=== PATIENT | male | born 1975 | race American Indian/Alaskan Native ===

== ENCOUNTER 2016-07-04 07:45 | Emergency (ER) | payer OTHER ==
[2016-07-04 08:01] VITALS: BP 166/110
[2016-07-04] MEDS: MOTRIN PO ONE (09:08)
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
--- NOTE | 2016-07-04 12:11 | XRay Report ---
LEFT SHOULDER: Routine views demonstrate normal bony and soft tissue structures with normal joint alignment of the shoulder. IMPRESSION: Normal study..
== END 2016-07-04 10:00 | disposition home or self-care (01) ==
LOC: ED 07:45
DX: S16.1XXA Strain of muscle, fascia and tendon at neck level, initial encounter (principal); S46.912A Strain of unspecified muscle, fascia and tendon at shoulder and upper arm level, left arm, initial encounter; I10 Essential (primary) hypertension; F17.200 Nicotine dependence, unspecified, uncomplicated; V89.2XXA Person injured in unspecified motor-vehicle accident, traffic, initial encounter; Y93.89 Activity, other specified; Y99.8 Other external cause status; Y92.89 Other specified places as the place of occurrence of the external cause
CPT/HCPCS: 99283

== ENCOUNTER 2016-11-12 22:10 | Emergency (ER) | payer SELFPAY ==
[2016-11-13] MEDS ORDERED: BENADRYL IM ONE (02:32)
[2016-11-13] MEDS ORDERED: PEPCID PO ONE (02:33)
[2016-11-13] MEDS ORDERED: MOTRIN PO ONE (02:33)
--- NOTE | 2016-11-13 02:33 | Emergency Department Report ---
HPI - General Chief Complaint: Allergic Reaction Time Seen by Provider: 11/13/16 02:22 - HPI HPI: 40-year-old male past medical history smoker presents with complaint of bee sting to right fifth digit 48 hours ago. Patient states that hand is becoming slightly swollen and painful, visible swelling at right fifth finger. Patient denies any fevers or chills no hives no respiratory distress. On exam patient is awake alert and oriented 3 not in acute distress no audible wheezing or stridor patient speaking in full sentences. States he has not taken any medicine since the bee sting. States he has reacted to bee stings like this in the past. ED Past Medical Hx - Past Medical History Previous Medical History?: Yes Hx Hypertension: Yes - Social History Smoking Status: Current Every Day Smoker - Medications Home Medications: Home Medications Medication Instructions Recorded Confirmed Last Taken Type Cyclobenzaprine [Flexeril] 10 mg PO TID PRN #20 tablet 07/04/16 Unknown Rx Diclofenac Sodium 75 mg PO BID #20 tablet.dr 07/04/16 Unknown Rx Cephalexin [Keflex] 500 mg PO BID #14 capsule 11/13/16 Unknown Rx EPINEPHrine (NF) [Epipen (Nf)] 0.3 mg IM QDAY PRN #1 syringekit 11/13/16 Unknown Rx Famotidine [Pepcid] 20 mg PO BID #30 tablet 11/13/16 Unknown Rx Prednisone [predniSONE 5 mg (6-Day 5 mg PO .TAPER #1 tab.ds.pk 11/13/16 Unknown Rx Pack, 21 Tabs)] Sulfamethoxazole/Trimethoprim 1 each PO BID #14 tablet 11/13/16 Unknown Rx [Bactrim DS TAB] diphenhydrAMINE [Benadryl CAP] 25 mg PO Q8HR PRN #25 capsule 11/13/16 Unknown Rx ED Review of Systems ROS: Stated complaint: REACTION TO BEE STING/RT HAND SWELLING Other details as noted in HPI Constitutional: denies: chills, fever Eyes: denies: eye pain, eye discharge, vision change ENT: denies: ear pain, throat pain Respiratory: denies: cough, shortness of breath, wheezing Cardiovascular: denies: chest pain, palpitations Endocrine: no symptoms reported Gastrointestinal: denies: abdominal pain, nausea, diarrhea Genitourinary: denies: urgency, dysuria Musculoskeletal: as per HPI (swelling right hand and pinky). denies: back pain , joint swelling, arthralgia Skin: denies: rash, lesions Neurological: denies: headache, weakness, paresthesias Psychiatric: denies: anxiety, depression Hematological/Lymphatic: denies: easy bleeding, easy bruising Physical Exam - Physical Exam Vital Signs: Vital Signs 11/12/16 22:36 Temperature 98.6 F Pulse Rate 103 H Respiratory 18 Rate Blood Pressure 164/108 O2 Sat by Pulse 97 Oximetry General: General: Well appearing, well nourished, in no distress. Oriented x 3, normal mood and affect . Ambulating without difficulty. Skin: Good turgor, no rash, unusual bruising or prominent lesions Head: Normocephalic, atraumatic, no visible or palpable masses, depressions, or scaring. Eyes: Visual acuity intact, conjunctiva clear, sclera non-icteric, EOM intact, PERRLA Pharynx: Mucosa non-inflamed, no tonsillar hypertrophy or exudate Neck: Supple, without lesions, bruits, or adenopathy, thyroid non-enlarged and non-tender Heart: S1-S2 no murmurs Lungs: Clear to auscultation bilaterally Extremities: Mild swelling of the right hand and right fifth digit. No erythema no visible abscess distal sensation and capillary refill is intact range of motion flexion right increased slightly painful but intact. Range of motion DIP and MCP and PIP intact on exam no visible paronychia no visible purulence or fluctuance in finger. Range of motion right wrist intact distal radial and ulnar pulses intact and strong on clinical palpation. No snuffbox tenderness. Neurologic: CN 2-12 normal. ED Course Vital Signs 11/12/16 22:36 Temperature 98.6 F Pulse Rate 103 H Respiratory 18 Rate Blood Pressure 164/108 O2 Sat by Pulse 97 Oximetry ED Medical Decision Making - Medical Decision Making A/P: Bee sting right hand 1-mild localized allergic reaction, patient given Pepcid Benadryl Solu-Medrol 2-I will provide patient with prednisone taper pack, EpiPen, Motrin, hydroxyzine 3-Bactrim and Keflex twice a day 7 days 4-I educated patient on signs and symptoms of an cellulitis and showed an images of hand cellulitis. Patient states he understood what concerning symptoms to look out for and will return to the ED if symptoms worsen 5- distal sensation and range of motion and capillary refill intact 6- 48 hour recheck in the ED Critical care attestation.: If time is entered above; I have spent that time in minutes in the direct care of this critically ill patient, excluding procedure time. ED Disposition Clinical Impression: Allergic reaction to bee sting Insect sting allergy, current reaction Qualifiers: Encounter type: initial encounter Injury intent: undetermined intent Qualified Code(s): T63.484A - Toxic effect of venom of other arthropod, undetermined, initial encounter Disposition: TO HOME OR SELFCARE Is pt being admited?: No Does the pt Need Aspirin: No Condition: Stable Instructions: Cellulitis (ED), Insect Bite or Sting (ED) Additional Instructions: Patient instructed to return to the ED in 48 hours for wound check Prescriptions: Cephalexin [Keflex] 500 mg PO BID #14 capsule diphenhydrAMINE [Benadryl CAP] 25 mg PO Q8HR PRN #25 capsule PRN Reason: Itching EPINEPHrine (NF) [Epipen (Nf)] 0.3 mg IM QDAY PRN #1 syringekit PRN Reason: Anaphylaxis Famotidine [Pepcid] 20 mg PO BID #30 tablet Prednisone [predniSONE 5 mg (6-Day Pack, 21 Tabs)] 5 mg PO .TAPER #1 tab.ds.pk Sulfamethoxazole/Trimethoprim [Bactrim DS TAB] 1 each PO BID #14 tablet Referrals: PEE TAVAREZ MD [Primary Care Provider] - 3-5 Days Forms: Accompanied Note, Work/School Release Form(ED)
[2016-11-13 03:34] VITALS: BP 156/86
== END 2016-11-13 03:59 | disposition home or self-care (01) ==
LOC: ED 22:10
DX: T63.484A Toxic effect of venom of other arthropod, undetermined, initial encounter (principal); I10 Essential (primary) hypertension; F17.200 Nicotine dependence, unspecified, uncomplicated
CPT/HCPCS: 96372; 99282; J1200; J2930

== ENCOUNTER 2018-06-27 11:38 | Emergency (ER) | payer SELFPAY ==
[2018-06-27 11:48] VITALS: BP 150/107
--- NOTE | 2018-06-27 12:17 | Emergency Department Report ---
Minor Respiratory - HPI Chief Complaint: Upper Respiratory Infection Stated Complaint: SINUS INFECTION/WEAK Time Seen by Provider: 06/27/18 12:00 Duration: 2 weeks Pain Location: Facial, Nose Severity: moderate Minor Respiratory: Yes Rhinorrhea, Yes Able to Tolerate Fluids, Yes Fever, No Sore Throat, No Ear Pain, No Cough, No Sick Contacts, No Hemoptysis, No Chest Pain, No Shortness of Breath Other History: Mr. Salcedo is a 42-year-old male says had sinus congestion and facial pressure subjective fever for 2 weeks. He is concerned for sinus infection. Followed and treated for similar infection 2 years ago by outside physician at [facility]. Moderate discomfort. Has attempted [id number] medicine and fluticasone nasal spray. ED Review of Systems ROS: Stated complaint: SINUS INFECTION/WEAK Other details as noted in HPI Constitutional: fever, malaise Eyes: denies: eye pain ENT: congestion. denies: ear pain, throat pain Respiratory: denies: cough, shortness of breath, wheezing Cardiovascular: denies: chest pain Gastrointestinal: denies: abdominal pain ED Past Medical Hx - Past Medical History Previous Medical History?: Yes Hx Hypertension: Yes - Surgical History Past Surgical History?: No - Social History Smoking Status: Current Every Day Smoker Substance Use Type: None - Medications Home Medications: Home Medications Medication Instructions Recorded Confirmed Last Taken Type Cyclobenzaprine [Flexeril] 10 mg PO TID PRN #20 tablet 07/04/16 Unknown Rx Diclofenac Sodium 75 mg PO BID #20 tablet. 07/04/16 Unknown Rx Cephalexin [Keflex] 500 mg PO BID #14 capsule 11/13/16 Unknown Rx EPINEPHrine (NF) [Epipen (Nf)] 0.3 mg IM QDAY PRN #1 syringekit 11/13/16 Unk nown Rx Famotidine [Pepcid] 20 mg PO BID #30 tablet 11/13/16 Unknown Rx Prednisone [predniSONE 5 mg (6-Day 5 mg PO .TAPER #1 tab.ds.pk 11/13/16 Unknown Rx Pack, 21 Tabs)] Sulfamethoxazole/Trimethoprim 1 each PO BID #14 tablet 11/13/16 Unknown Rx [Bactrim DS TAB] diphenhydrAMINE [Benadryl CAP] 25 mg PO Q8HR PRN #25 capsule 11/13/16 Unknown Rx Amoxicillin [Amoxicillin TAB] 875 mg PO BID 10 Days #20 tablet 06/27/18 Unknown Rx Fluticasone [Flonase] 1 spray NS QDAY 14 Days #1 bottle 06/27/18 Unknown Rx Loratadine 10 mg PO DAILY 14 Days #14 capsule 06/27/18 Unknown Rx Minor Respiratory Exam - Exam General: Vital signs noted. No distress. Alert and acting appropriately. HEENT: Yes Pharyngeal Erythema, Yes Moist Mucous Membranes, Yes Rhinorrhea, Yes Frontal Tenderness, Yes Maxillary Tenderness, No Pharyngeal Exudates, No Conjuctival Injection Neck: Yes Supple, No Adenopathy Lungs: Yes Good Air Exchange, No Wheezes, No Ronchi, No Stridor, No Cough, No Labored Respirations, No Retractions, No Use of Accessory Muscles Heart: Yes Regular, No Murmur Abdomen: Yes Normal Bowel Sounds, No Tenderness, No Peritoneal Signs Skin: No Rash, No Edema Neurologic: Alert and oriented, no deficits. Musculoskeletal: Unremarkable. ED Course Vital Signs 06/27/18 11:46 Temperature 99.2 F Pulse Rate 77 Respiratory 16 Rate Blood Pressure 150/107 O2 Sat by Pulse 100 Oximetry ED Medical Decision Making - Medical Decision Making Mr. Yanez presents with symptoms of acute sinusitis for the past 2 weeks. Antibiotics are indicated due to duration and severity of symptoms. Due to cost, amoxicillin was prescribed instead of first line therapy, amoxicillin/clavulanate. Also prescribed loratadine and Flonase. Critical care attestation.: If time is entered above; I have spent that time in minutes in the direct care of this critically ill patient, excluding procedure time. ED Disposition Clinical Impression: Acute sinusitis Disposition: DC- TO HOME OR SELFCARE Is pt being admited?: No Does the pt Need Aspirin: No Condition: Stable Instructions: Sinusitis (ED) Prescriptions: Amoxicillin [Amoxicillin TAB] 875 mg PO BID 10 Days #20 tablet Fluticasone [Flonase] 1 spray NS QDAY 14 Days #1 bottle Loratadine 10 mg PO DAILY 14 Days #14 capsule Forms: Work/School Release Form(ED)
== END 2018-06-27 12:23 | disposition home or self-care (01) ==
LOC: ED 11:38
DX: J01.90 Acute sinusitis, unspecified (principal); I10 Essential (primary) hypertension; F17.200 Nicotine dependence, unspecified, uncomplicated
CPT/HCPCS: 99281

== ENCOUNTER 2018-11-11 02:45 | Emergency (ER) | payer SELFPAY ==
[2018-11-11] MEDS ORDERED: CATAPRES PO ONE (05:38)
--- NOTE | 2018-11-11 05:38 | Emergency Department Report ---
ED Upper Extremity Inj HPI - General Chief Complaint: Extremity Injury, Upper Stated Complaint: LT PINKY FINGER SWOLLEN Source: patient Mode of arrival: Ambulatory Limitations: No Limitations - History of Present Illness Initial Comments: This is a 42-year-old -[place] male who presents to the emergency room with pain and swelling around the left fingernail for 3-4 days. Patient states he cut his nail to low a couple of days ago and started experiencing some pain around the lateral nail bed. Patient states he is taken [id number] pain medication and Phenergan with no improvement of symptoms. MD Complaint: Injury to:: left, finger Onset/Timin -: days(s) Other Extremity Injury: Fingers: Left (5th nailbed) Other Injuries: none Handedness: right Place: home Severity scale (0 -10): 8 Improves With: none Worsens With: other (touch) Associated Symptoms: denies other symptoms Treatments Prior to Arrival: NSAIDS - Related Data Previous Rx's Medication Instructions Recorded Last Taken Type Cyclobenzaprine [Flexeril] 10 mg PO TID PRN #20 tablet 07/04/16 Unknown Rx Diclofenac Sodium 75 mg PO BID #20 tablet.dr 07/04/16 Unknown Rx Cephalexin [Keflex] 500 mg PO BID #14 capsule 11/13/16 Unknown Rx EPINEPHrine (NF) [Epipen (Nf)] 0.3 mg IM QDAY PRN #1 syringekit 11/13/16 Unknown Rx Famotidine [Pepcid] 20 mg PO BID #30 tablet 11/13/16 Unknown Rx Prednisone [predniSONE 5 mg (6-Day 5 mg PO .TAPER #1 tab.ds.pk 11/13/16 Unknown Rx Pack, 21 Tabs)] Sulfamethoxazole/Trimethoprim 1 each PO BID #14 tablet 11/13/16 Unknown Rx [Bactrim DS TAB] diphenhydrAMINE [Benadryl CAP] 25 mg PO Q8HR PRN #25 capsule 11/13/16 Unknown Rx Amoxicillin [Amoxicillin TAB] 875 mg PO BID 10 Days #20 tablet 06/27/18 Unknown Rx Fluticasone [Flonase] 1 spray NS QDAY 14 Days #1 bottle 06/27/18 Unknown Rx Loratadine 10 mg PO DAILY 14 Days #14 capsule 06/27/18 Unknown Rx Clindamycin [Clindamycin CAP] 300 mg PO Q8H #21 cap 11/11/18 Unknown Rx Ibuprofen [Motrin 800 MG tab] 800 mg PO Q8HR PRN #20 tablet 11/11/18 Unknown Rx Allergies Allergy/AdvReac Type Severity Reaction Status Date / Time No Known Allergies Allergy Verified 07/04/16 07:53 ED Review of Systems ROS: Stated complaint: LT PINKY FINGER SWOLLEN Other details as noted in HPI Constitutional: denies: chills, fever Respiratory: denies: cough, shortness of breath, wheezing Cardiovascular: denies: chest pain, palpitations Gastrointestinal: denies: abdominal pain, nausea, diarrhea Genitourinary: denies: urgency, dysuria Skin: change in hair/nails (swelling and pain around the nailbed of the left fifth finger). denies: rash, lesions Neurological: denies: headache, weakness, paresthesias Psychiatric: denies: anxiety, depression ED Past Medical Hx - Past Medical History Previous Medical History?: Yes Hx Hypertension: Yes - Surgical History Past Surgical History?: No - Social History Smoking Status: Never Smoker Substance Use Type: None - Medications Home Medications: Home Medications Medication Instructions Recorded Confirmed Last Taken Type Cyclobenzaprine [Flexeril] 10 mg PO TID PRN #20 tablet 07/04/16 Unknown Rx Diclofenac Sodium 75 mg PO BID #20 tablet.dr 07/04/16 Unknown Rx Cephalexin [Keflex] 500 mg PO BID #14 capsule 11/13/16 Unknown Rx EPINEPHrine (NF) [Epipen (Nf)] 0.3 mg IM QDAY PRN #1 syringekit 11/13/16 Unknown Rx Famotidine [Pepcid] 20 mg PO BID #30 tablet 11/13/16 Unknown Rx Prednisone [predniSONE 5 mg (6-Day 5 mg PO .TAPER #1 tab.ds.pk 11/13/16 Unknown Rx Pack, 21 Tabs)] Sulfamethoxazole/Trimethoprim 1 each PO BID #14 tablet 11/13/16 Unknown Rx [Bactrim DS TAB] diphenhydrAMINE [Benadryl CAP] 25 mg PO Q8HR PRN #25 capsule 11/13/16 Unknown Rx Amoxicillin [Amoxicillin TAB] 875 mg PO BID 10 Days #20 tablet 06/27/18 Unknown Rx Fluticasone [Flonase] 1 spray NS QDAY 14 Days #1 bottle 06/27/18 Unknown Rx Loratadine 10 mg PO DAILY 14 Days #14 capsule 06/27/18 Unknown Rx Clindamycin [Clindamycin CAP] 300 mg PO Q8H #21 cap 11/11/18 Unknown Rx Ibuprofen [Motrin 800 MG tab] 800 mg PO Q8HR PRN #20 tablet 11/11/18 Unknown Rx ED Physical Exam - General Limitations: No Limitations General appearance: alert, in no apparent distress, obese - Respiratory Respiratory exam: Present: normal lung sounds bilaterally. Absent: respiratory distress - Cardiovascular Cardiovascular Exam: Present: regular rate, normal rhythm. Absent: systolic murmur, diastolic murmur, rubs, gallop - GI/Abdominal GI/Abdominal exam: Present: soft, normal bowel sounds - Expanded Upper Extremity Exam Left Hand Wrist exam: Present: full ROM, tenderness (swelling and tenderness to the lateral nail fold, no discoloration or palpable abscess), swelling. Absent: abrasion, laceration, ecchymosis, deformity, crepidus, dislocation, amputation, nail avulsion, subungual hematoma Neuro motor exam: Present: wrist extension intact, thumb opposition intact, thumb IP flexion intact, thumb adduction intact, fingers 2-5 abduction intact Neurosensory exam: Present: radial nerve intact, ulnar nerve intact, median nerve intact Vascular: Present: normal capillary refill, radial pulse - Neurological Exam Neurological exam: Present: alert, oriented X3 - Psychiatric Psychiatric exam: Present: normal affect, normal mood - Skin Skin exam: Present: warm, dry, intact, normal color. Absent: rash ED Course Vital Signs 11/11/18 11/11/18 02:49 06:17 Temperature 97.4 F L 97.8 F Pulse Rate 74 64 Respiratory 18 18 Rate Blood Pressure 170/112 171/116 O2 Sat by Pulse 98 98 Oximetry ED Medical Decision Making - Medical Decision Making Patient was examined by me. Patient is in no acute distress. Blood pressure elevated. Past medical history of hypertension and patient is asymptomatic. Patient hasn't taken medication since yesterday. Patient lisinopril and amlodipine which is what the patient takes at home. There is swelling and tenderness around the left fifth nail folds. There is no accumulation pus or abscess for I&D. Patient will be started on antibiotics and pain medication. He is instructed to follow-up with the primary care doctor or return to the emergency room if symptoms are worsening. Patient discharged home stable. Critical care attestation.: If time is entered above; I have spent that time in minutes in the direct care of this critically ill patient, excluding procedure time. ED Disposition Clinical Impression: Paronychia of finger of left hand, Asymptomatic hypertension Disposition: TO HOME OR SELFCARE Is pt being admited?: No Does the pt Need Aspirin: No Condition: Stable Instructions: Paronychia (ED), Hypertension (ED) Additional Instructions: Complete full course of antibiotics is discussed. Social finger and ice with Betadine to decrease swelling. Take pain medication every 6-8 hours as needed. Follow-up with the primary care doctor urgent care for wound reevaluation in 2-3 days. Prescriptions: Clindamycin [Clindamycin CAP] 300 mg PO Q8H #21 cap Ibuprofen [Motrin 800 MG tab] 800 mg PO Q8HR PRN #20 tablet PRN Reason: Pain , Severe (7-10) Referrals: PEE TAVAREZ MD [Primary Care Provider] - 3-5 Days LAKIA MARQUES MD [Staff Physician] - 3-5 Days Forms: Work/School Release Form(ED) Time of Disposition: 06:04
[2018-11-11] MEDS ORDERED: NORVASC PO ONE (06:08)
[2018-11-11] MEDS ORDERED: ZESTRIL PO ONE (06:08)
[2018-11-11 06:28] VITALS: BP 171/116
== END 2018-11-11 06:26 | disposition home or self-care (01) ==
LOC: ED 02:45
DX: L03.012 Cellulitis of left finger (principal); I10 Essential (primary) hypertension; Z79.899 Other long term (current) drug therapy
CPT/HCPCS: 99282

== ENCOUNTER 2021-02-09 15:51 | Emergency (ER) | payer SELFPAY ==
[2021-02-09] MEDS ORDERED: TETANUS,DIPH,PERTUSS(ACELL) VACCINE 0.5 ML SYRINGE IM ONE (16:55)
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
[2021-02-09 17:43] VITALS: BP 150/101
== END 2021-02-09 17:40 | disposition home or self-care (01) ==
LOC: ED 15:51
DX: T20.20XA Burn of second degree of head, face, and neck, unspecified site, initial encounter (principal); I10 Essential (primary) hypertension; Z79.899 Other long term (current) drug therapy; X13.1XXA Other contact with steam and other hot vapors, initial encounter; Y93.89 Activity, other specified; Y92.89 Other specified places as the place of occurrence of the external cause; Y99.8 Other external cause status
CPT/HCPCS: 90471; 90715; 99282

== ENCOUNTER 2021-06-29 12:08 | Emergency (ER) | payer SELFPAY ==
[2021-06-29] MEDS ORDERED: FAMOTIDINE 20 MG TAB PO ONE (12:21)
[2021-06-29] MEDS ORDERED: methylPREDNISolone Sod Succinate 125 MG/2 ML INJ IM ONE (12:21)
--- NOTE | 2021-06-29 12:25 | Emergency Department Report ---
HPI - General Chief Complaint: Allergic Reaction PUI?: No Time Seen by Provider: 06/29/21 12:18 - HPI HPI: 45-year-old -[place] male presents to the ER today with complaints of tongue swelling. Patient states that he noticed it mainly around 10:00 this morning. He states that the swelling is mainly to the left side of the tongue. He also reports itching to the tongue. He states that he had some swelling and itching around his lips about 2 weeks ago but it went away. He states that this morning he did not have any swelling to his lips but just this time. He denies any swelling to his throat, difficulty swallowing. He denies any rash. He does admit that he is on lisinopril for high blood pressure. He denies any other potential new contacts like antibiotics, facial products, foods, or any other new contacts. He denies any shortness of breath, wheezing or cough or extremity swelling. He states that he did take 50 mg of Benadryl prior to coming into the ER today. ED Past Medical Hx - Past Medical History Hx Hypertension: Yes - Social History Smoking Status: Never Smoker Substance Use Type: None - Medications Home Medications: Home Medications Medication Instructions Recorded Confirmed Last Taken Type Sulfamethoxazole/Trimethoprim 1 each PO BID #14 tablet 11/13/16 Unknown Rx [Bactrim DS TAB] Fluticasone [Flonase] 1 spray NS QDAY 14 Days #1 bottle 06/27/18 Unknown Rx Loratadine 10 mg PO DAILY 14 Days #14 capsule 06/27/18 Unknown Rx Ibuprofen [Motrin 800 MG tab] 800 mg PO Q8HR PRN #20 tablet 11/11/18 Unknown Rx SILVER sulfADIAZINE 50 GRAM 1 applic TP BID #1 tube 02/09/21 Unknown Rx [Thermazene 50 Gram] traMADoL [Ultram] 50 mg PO Q4HR PRN #20 tablet 02/09/21 Unknown Rx EPINEPHrine (NF) [Epipen (Nf)] 0.3 mg IM QDAY PRN #1 syringekit 06/29/21 Unknown Rx Famotidine [Pepcid] 20 mg PO BID #30 tablet 06/29/21 Unknown Rx diphenhydrAMINE [Benadryl CAP] 25 mg PO Q8HR PRN #25 capsule 06/29/21 Unknown Rx predniSONE [Deltasone] 50 mg PO QDAY #4 tab 06/29/21 Unknown Rx ED Review of Systems ROS: Stated complaint: ALLERGIC REACTION Other details as noted in HPI Comment: All other systems reviewed and negative Constitutional: denies: chills, fever Eyes: denies: eye pain, eye discharge, vision change ENT: other (Tongue swelling). denies: ear pain, throat pain, dental pain, hearing loss, epistaxis Respiratory: denies: cough, shortness of breath, SOB with exertion, SOB at rest, wheezing Gastrointestinal: denies: abdominal pain, nausea, vomiting, diarrhea, constipation, hematemesis, melena, hematochezia Genitourinary: denies: urgency, dysuria, hematuria, discharge, testicular pain, testicular mass Musculoskeletal: denies: back pain, joint swelling, arthralgia Skin: pruritus. denies: rash, lesions, change in color, change in hair/nails Neurological: denies: numbness, paresthesias, confusion, abnormal gait, vertigo Psychiatric: denies: anxiety, depression, auditory hallucinations, visual hallucinations, homicidal thoughts, suicidal thoughts Hematological/Lymphatic: denies: easy bleeding, easy bruising, swollen glands Physical Exam - Physical Exam Vital Signs: Vital Signs 06/29/21 06/29/21 12:13 12:15 Temperature 97.8 F 98.7 F Pulse Rate 92 H Respiratory 17 Rate Blood Pressure 156/92 O2 Sat by Pulse 99 Oximetry ED Course Vital Signs 06/29/21 06/29/21 12:13 12:15 Temperature 97.8 F 98.7 F Pulse Rate 92 H Respiratory 17 Rate Blood Pressure 156/92 O2 Sat by Pulse 99 Oximetry ED Medical Decision Making - Medical Decision Making Patient reports that he still feels better after Solu-Medrol and Pepcid. Reexamination after observing patient for about 2 to 3 hours shows that there was mild improvement of the swelling to the tongue. He has no trismus or drooling on exam. No posterior oropharynx swelling and his airway appears to be intact. Trachea appears midline. He has no stridor on exam. Chest is clear to auscultation. He is not toxic or ill-appearing. His vital signs have remained stable. Patient was also seen and evaluated by Dr. Medina, see his note for further detail. Patient will be discharged home with continued prescription for prednisone and Pepcid as well as Benadryl. He was given strict warnings that he needs to no longer take the lisinopril as well as any FELICIANO inhibitors in the future. He currently takes amlodipine five as well and so recommend that he takes two of the 5 mg daily to make up for him not being on the lisinopril but follow-up with his PCP either this week or next week. Patient understands that if at any point his symptoms worsen to return to the ER. He expressed understanding of all instructions. Patient was stable at time of discharge. Critical care attestation.: If time is entered above; I have spent that time in minutes in the direct care of this critically ill patient, excluding procedure time. 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 IT IS IMPORTANT THAT YOU AVOID ANY ACEI IN FUTURE. Continue your norvasc, and instead of 5mg daily, you can increase to 10 mg daily. Use the Epi pen only cases of severe allergic reaction. I recommend following up with your PCP this week or next week. Take the prednisone, benadryl and pepcid as prescribed. Return to ED if worse. Prescriptions: diphenhydrAMINE [Benadryl CAP] 25 mg PO Q8HR PRN #25 capsule PRN Reason: Itching predniSONE [Deltasone] 50 mg PO QDAY #4 tab EPINEPHrine (NF) [Epipen (Nf)] 0.3 mg IM QDAY PRN #1 syringekit PRN Reason: Anaphylaxis Famotidine [Pepcid] 20 mg PO BID #30 tablet Referrals: PRIMARY CARE,MD [Primary Care Provider] - 3-5 Days Forms: Work/School Release Form(ED) Time of Disposition: 14:10 ED Physical Exam - General Limitations: No Limitations General appearance: alert, in no apparent distress - Head Head exam: Present: atraumatic, normocephalic, normal inspection - Eye Eye exam: Present: normal appearance, PERRL, EOMI Pupils: Present: normal accommodation - ENT ENT exam: Present: normal orophraynx, mucous membranes moist, other (mild swelling noted to left side of tongue) - Expanded ENT Exam Expanded Mouth exam: Present: normal external inspection. Absent: drooling, trismus, muffled voice, tongue normal (mild swelling to left side of tongue), tongue elevation Teeth exam: Present: normal inspection Throat exam: Positive: normal inspection - Neck Neck exam: Present: normal inspection, full ROM. Absent: meningismus - Respiratory Respiratory exam: Present: normal lung sounds bilaterally. Absent: respiratory distress, wheezes, rales, rhonchi - Cardiovascular Cardiovascular Exam: Present: regular rate, normal rhythm, normal heart sounds - Neurological Exam Neurological exam: Present: alert, oriented X3, CN II-XII intact, normal gait - Psychiatric Psychiatric exam: Present: normal affect, normal mood - Skin Skin exam: Present: intact
--- NOTE | 2021-06-29 12:57 | Event Note ---
Date of service: 06/29/21 Face to Face: For this encounter I have reviewed the PA/PATIENT ACCESS REGISTRAR documentation, treatment plan, medical decision making, and I had face to face time with this patient. Pmd Dr Canales on lisinopril and norvasc Presenting with painless lateral tongue swelling. No dysphonia. Saturating at 100% on room air. Speaking on his cell phone, and in no acute distress. Treated appropriately. Advised to discontinue lisinopril. May continue Norvasc. Follow-up with outpatient primary care doctor for evaluation for al ternative antihypertensive therapy. Discharged with EpiPen, as needed medications. Discussed this with the patient and physician dairy and food laboratory assistant. Patient observed on a pulse oximeter for hours without clinical decompensation. He is suitable for discharge at this point time with outpatient follow-up.
[2021-06-29 13:58] VITALS: BP 141/89
== END 2021-06-29 14:31 | disposition home or self-care (01) ==
LOC: ED 12:08
DX: T78.3XXA Angioneurotic edema, initial encounter (principal); T46.4X5A Adverse effect of angiotensin-converting-enzyme inhibitors, initial encounter; I10 Essential (primary) hypertension
CPT/HCPCS: 96372; 99282; J2930